=== PATIENT | female | born 2000 | race Two or more races ===

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

== ENCOUNTER 2019-01-04 16:20 | Emergency (ER) | payer SELFPAY ==
[~2019-01-04] VITALS: Ht 154.9 cm; Wt 54.4 kg
[~2019-01-04 16:20] MED LIST: DOCU-109 PO; FERR325T72 PO; IBUP800T19 PO; NITR100C62 PO; OXYC1TAB7 PO; PREN1TAB58 PO; SULF1TAB24 PO
[2019-01-04 17:23] VITALS: BP 120/61
[2019-01-04 18:00] LABS: BILIRUBIN,URINE NEGATIVE (NEG); CLARITY,URINE CLEAR; COLOR,URINE YELLOW; NITRITE,URINE NEGATIVE (NEG); PH,URINE 7.5; PROTEIN,URINE NEGATIVE (NEG-TRACE); UROBILINOGEN,URINE 0.2 mg/dL (0.2 mg/dL)
[2019-01-04 18:09] LABS: CREATININE 0.7 mg/dL (0.6-1.0)
[2019-01-04 18:10] LABS: GFR 107.8; POTASSIUM 4.1 mmol/L (3.5-5.1)
[2019-01-04 18:18] LABS: BACTERIA,URINE 0 /HPF (0-FEW); SQUAMOUS EPITHELIAL CELL,UR OCC /LPF
[2019-01-04 19:01] LABS: BASO # 0.1 x10^3/uL (0.0-0.2); BASO % 1 % (0-3); EOS # 0.1 x10^3/uL (0.0-0.7); EOS % 1 % (0-3); HEMATOCRIT 40.8 % (36.0-47.0); HEMOGLOBIN 13.7 g/dL (12.0-15.5); LYMPH # 1.8 x10^3/uL (1.0-4.8); LYMPH % 27 % (24-48); MEAN CORPUSCULAR HEMOGLOBIN 27 pg (25-35); MEAN CORPUSCULAR HGB CONC 34 g/dL (31-37); MEAN CORPUSCULAR VOLUME 81 fL (79-100); MONO # 0.4 x10^3/uL (0.0-1.1); MONO % 6 % (0-9); NEUT # 4.5 x10^3uL (1.8-7.7); NEUT % 65 % (31-73); PLATELET COUNT 250 x10^3/uL (140-400); RED BLOOD COUNT 5.03 x10^6/uL (3.50-5.40); RED CELL DISTRIBUTION WIDTH 14.4 % (11.5-14.5); WHITE BLOOD COUNT 6.8 x10^3/uL (4.0-11.0)
--- NOTE | 2019-01-04 19:03 | RAD ---
Transabdominal and transvaginal ultrasound the pelvis. HISTORY: Vaginal bleeding Transabdominal ultrasound was performed. The bladder was empty. The uterus is normal in size. Endometrium does not appear thickened. Ovaries were poorly visualized Transvaginal imaging was performed for further evaluation. Uterus measured 7.5 x 5.4 x 3.9 cm. The endometrium is 9 mm probably related to the phase of menstrual cycle. There is no uterine mass. Right ovary was within normal limits in size. There are multiple follicles about the periphery of the ovary. There is flow in the ovary with color imaging and Doppler. Left ovary measured 3.1 x 3 x 2.3 cm. There are multiple follicles about the in the left ovary. There is flow in the left ovary with color imaging and Doppler. IMPRESSION: 1. Multiple follicles in each ovary which would raise the possibility of polycystic ovary disease. 2. No dominant ovarian cyst or mass. 3. Uterus normal in appearance. Electronically signed by: Jared Smith MD (01/04/2019 7:01 PM) [facility]
--- NOTE | 2019-01-04 19:24 | PHYS DOC ---
Past Medical History Past Medical History: No Pertinent History Additional Past Medical Histor: gallstones? Past Surgical History: No Surgical History Alcohol Use: None Drug Use: None Adult General Chief Complaint Chief Complaint: VAGINAL BLEEDING HPI HPI Patient is a 18 year old female with no significant medical history who presents to the ED today complaining of vaginal bleeding with abdominal cramping that began today. Patient states she is currently on her menstrual cycle. She states she passed a big tissue and was concerned she could've been . Denies any nausea vomiting. Denies any fever. Denies any urgency frequency or dysuria. She also states her last menstrual cycle was November 17, [id number] Review of Systems Review of Systems Constitutional: Denies fever or chills [] Eyes: Denies change in visual acuity, redness, or eye pain [] HENT: Denies nasal congestion or sore throat [] Respiratory: Denies cough or shortness of breath [] Cardiovascular: No additional information not addressed in HPI [] GI: Reports abdominal pain, vaginal bleeding, passing tissue denies nausea, vomiting, bloody stools or diarrhea [] : Denies dysuria or hematuria [] Musculoskeletal: Denies back pain or joint pain [] Integument: Denies rash or skin lesions [] Neurologic: Denies headache, focal weakness or sensory changes [] All other systems were reviewed and found to be within normal limits, except as documented in this note. Allergies Allergies Allergies Coded Allergies Type Severity Reaction Last Updated Verified No Known Drug Allergies 11/26/14 No Physical Exam Physical Exam Constitutional: Well developed, well nourished, no acute distress, non-toxic appearance. [] HENT: Normocephalic, atraumatic, bilateral external ears normal, oropharynx moist, no oral exudates, nose normal. [] Eyes: PERRLA, EOMI, conjunctiva normal, no discharge. [] Neck: Normal range of motion, no tenderness, supple, no stridor. [] Cardiovascular:Heart rate regular rhythm, no murmur [] Lungs & Thorax: Bilateral breath sounds clear to auscultation [] Abdomen: Bowel sounds normal, soft, no tenderness, no masses, no pulsatile masses. [] Pelvic exam External pelvic appears normal, cervix not well visualized, no CMT, no adnexal tenderness, trace amount of bright red blood in the vaginal vault. Skin: Warm, dry, no erythema, no rash. [] Back: No tenderness, no CVA tenderness. [] Extremities: No tenderness, no cyanosis, no clubbing, ROM intact, no edema. [] Neurologic: Alert and oriented X 3, normal motor function, normal sensory function, no focal deficits noted. [] Psychologic: Affect normal, judgement normal, mood normal. [] Current Patient Data Vital Signs Vital Signs Date Time Temp Pulse Resp B/P (MAP) Pulse Ox O2 Delivery O2 Flow Rate FiO2 01/04/19 17:23 85 18 120/61 (80) 100 Room Air 01/04/19 17:20 99.0 99.0 Lab Values Laboratory Tests Test 01/04/19 17:35 01/04/19 17:50 01/04/19 17:55 01/04/19 18:45 Urine Color Yellow Urine Clarity Clear Urine pH 7.5 Urine Specific [place] 1.025 Urine Protein Negative mg/dL (NEG-TRACE) Urine Glucose (UA) Negative mg/dL (NEG) Urine Ketones (Stick) Negative mg/dL (NEG) Urine Blood Large (NEG) Urine Nitrite Negative (NEG) Urine Bilirubin Negative (NEG) Urine Urobilinogen Dipstick 0.2 mg/dL (0.2 mg/dL) Urine Leukocyte Esterase Trace (NEG) Urine RBC 11-20 /HPF (0-2) Urine WBC 1-4 /HPF (0-4) Urine Squamous Epithelial Cells Occ /LPF Urine Bacteria 0 /HPF (0-FEW) Maternal Serum HCG Beta Subunit < 1 mIU/mL (0-5) Sodium Level 140 mmol/L (136-145) Potassium Level 4.1 mmol/L (3.5-5.1) Chloride Level 104 mmol/L (98-107) Carbon Dioxide Level 24 mmol/L (21-32) Anion Gap 12 (6-14) Blood Urea Nitrogen 12 mg/dL (7-20) Creatinine 0.7 mg/dL (0.6-1.0) Estimated GFR (Cockcroft-Gault) 107.8 Glucose Level 97 mg/dL (70-99) Calcium Level 10.0 mg/dL (8.5-10.1) POC Urine HCG, Qualitative Hcg negative (Negative) White Blood Count 6.8 x10^3/uL (4.0-11.0) Red Blood Count 5.03 x10^6/uL (3.50-5.40) Hemoglobin 13.7 g/dL (12.0-15.5) Hematocrit 40.8 % (36.0-47.0) Mean Corpuscular Volume 81 fL (79-100) Mean Corpuscular Hemoglobin 27 pg (25-35) Mean Corpuscular Hemoglobin Concent 34 g/dL (31-37) Red Cell Distribution Width 14.4 % (11.5-14.5) Platelet Count 250 x10^3/uL (140-400) Neutrophils (%) (Auto) 65 % (31-73) Lymphocytes (%) (Auto) 27 % (24-48) Monocytes (%) (Auto) 6 % (0-9) Eosinophils (%) (Auto) 1 % (0-3) Basophils (%) (Auto) 1 % (0-3) Neutrophils # (Auto) 4.5 x10^3uL (1.8-7.7) Lymphocytes # (Auto) 1.8 x10^3/uL (1.0-4.8) Monocytes # (Auto) 0.4 x10^3/uL (0.0-1.1) Eosinophils # (Auto) 0.1 x10^3/uL (0.0-0.7) Basophils # (Auto) 0.1 x10^3/uL (0.0-0.2) Laboratory Tests 01/04/19 18:45 Laboratory Tests 01/04/19 17:50 Microbiology 01/04/19 Wet Prep - Final, Complete EKG EKG [] Radiology/Procedures Radiology/Procedures []PROCEDURE: PELVIS W/TV Transabdominal and transvaginal ultrasound the pelvis. HISTORY: Vaginal bleeding Transabdominal ultrasound was performed. The bladder was empty. The uterus is normal in size. Endometrium does not appear thickened. Ovaries were poorly visualized Transvaginal imaging was performed for further evaluation. Uterus measured 7.5 x 5.4 x 3.9 cm. The endometrium is 9 mm probably related to the phase of menstrual cycle. There is no uterine mass. Right ovary was within normal limits in size. There are multiple follicles about the periphery of the ovary. There is flow in the ovary with color imaging and Doppler. Left ovary measured 3.1 x 3 x 2.3 cm. There are multiple follicles about the in the left ovary. There is flow in the left ovary with color imaging and Doppler. IMPRESSION: 1. Multiple follicles in each ovary which would raise the possibility of polycystic ovary disease. 2. No dominant ovarian cyst or mass. 3. Uterus normal in appearance. Electronically signed by: Ilia Danielson MD (01/04/2019 7:01 PM) [facility] DICTATED and SIGNED BY: ILIA DANIELSON MD DATE: 01/04/191900 Course & Med Decision Making Course & Med Decision Making Pertinent Labs and Imaging studies reviewed. (See chart for details) This is a 18-year-old female patient presenting to the ED today complaining of vaginal bleeding, symptoms began today. Currently on her menstrual cycle, also complaining of cramping, last cycle was November 17, 2018. CBC with a normal hemoglobin and hematocrit, WBCs normal. Urine analysis is negative for infection, negative urine hCG, beta-hCG less than 1, pelvic ultrasound was negative for any acute findings, noted for possibility of polycystic ovarian di sease. Wet prep negative for any acute findings. Patient was discharged to home, provided OB for follow-up. Provided return precautions. Dragon Disclaimer Dragon Disclaimer This electronic medical record was generated, in whole or in part, using a voice recognition dictation system. Departure Departure Impression: Primary Impression: Dysfunctional uterine bleeding Disposition: HOME, SELF-CARE Condition: STABLE Referrals: NO PCP (PCP) Follow up in one week VALENTINA BARNEY MD Patient Instructions: Uterine Bleeding, Dysfunctional, [id number] Additional Instructions: You were evaluated in the emergency room for vaginal bleeding and abdominal pain. Please contact the provided [facility] and set up a follow-up appointment. Come back to the ED at any point symptoms worsen. DEON WALDROP FLOOR CASHIER Jan 04, 2019 19:24
[2019-01-05 15:16] LABS: GC PROBE Negative (Negative)
== END 2019-01-04 19:40 | disposition home or self-care (01) ==
LOC: ER 16:20
DX: N93.8 Other specified abnormal uterine and vaginal bleeding (principal); R10.9 Unspecified abdominal pain
CPT/HCPCS: 36415; 76830; 76856; 80048; 81001; 81025; 84702; 85025; 87491; 87591; 99285; Q0111